=== PATIENT | female | born 1985 | race Caucasian/White ===

== ENCOUNTER 2016-12-24 22:22 | Emergency (ER) | payer OTHER ==
--- NOTE | 2016-12-24 23:32 | PD ---
HPI Travel History International Travel<30 Days: No Contact w/Intl Traveler<30Days: No Known Affected Area: No History of Present Illness HPI This patient is a 31-year-old 4 para 10-1 EDC is January 24, 2017 presently at 35 weeks and 4 days presently incarcerated and was brought in [place] the [place] [facility] due to question of leaking fluid Amnisure is negative and subsequent onset of contractions at 9:15 PM No bleeding the baby is active She was told that the baby was breech 2 weeks ago No regularity to the contractions No nausea no vomiting no fever no chills no diarrhea or constipation no urinary tract symptoms had a mucousy discharge a few days ago Patient with a history of a previous section History Past Medical History Narrative Medical No known drug allergies no major medical problems Obstetric History Obstetric History First baby born January 25 at 2013 female infant weight 6 lbs. 7 oz. section for abruption of the placenta Oanh PATRICK 2 Past Surgical History Narrative Surgical appendectomy Family History Narrative Family History History of stroke and heart disease Family History: Negative Social History Alcohol Use: No Tobacco Use: Yes (half a pack of cigarettes per day) Substance Abuse: Yes (opioid substance abuse presently on Subutex 2 mg per day) Allergies-Medications Comments No known drug allergies Review of Systems General / Constitutional: Fever, Weight Gain, Weight Loss, Chills, Other Eyes: No: Diploplia, Blurred Vision, Visual changes, Pain, Photophobia, Other HENT: No: Headaches, Vertigo, Dental Difficulties, Lightheadedness, Other Cardiovascular: No: Irregular Rhythm, Chest Pain or Discomfort, Palpitations, Tachycardia, Syncope, Varicosities, Edema, Cyanosis, Other Respiratory: No: Cough, Short of Breath, Wheezing, Other Gastrointestinal: Nausea (nausea during the ), Abdominal Pain ( irregular contractions) Genitourinary: No: Urgency, Frequency, Dysuria, Nocturia, Hematuria, Decreased Urinary Output, Oliguria, Hesitancy, Dribbling, Incontinence, Pelvic Pain, Dyspareunia, Discharge, Menorrhagia, Vaginal Bleeding, Other Musculoskeletal: Other (pain in her right rib cage area), No: Limited ROM, Weakness, Cramping, Edema, Pain Neurologic: No: Weakness, Dizziness, Syncope, Focal Abnormalities, Coordination Problem, Headache, Slurred Speech, Seizures, Other Psychiatric: No: Anxiety, Depression, Suicidal Ideations, Disorder of Thought, Mood Disorder, Substance Abuse, Homicidal Ideation, Other Physical Exam Narrative GENERAL: Well-nourished, well-developed patient. Patient is alert oriented 3 and cooperative in moderate distress secondary to discomfort reporting that most of the pain is in her ribs on the right side SKIN: Warm and dry. HEAD: Normocephalic and atraumatic. EYES: No scleral icterus. No injection or drainage. ENT: No nasal drainage noted. Mucous membranes pink. Airway patent. NECK: Supple, trachea midline. No JVD. CARDIOVASCULAR: Regular rate and rhythm without murmurs, gallops, or rubs. RESPIRATORY: Breath sounds equal bilaterally. No accessory muscle use. ABDOMEN/GI gravid consistent with stated gestational age of 35 weeks healed Pfannenstiel incision Gravid to [-] weeks size 35 Fundal Height: [-] GENITOURINARY: Speculum exam is done there is no fluid no blood no gross dilatation External Genitalia: intact and normal in appearance BUS glands: [-] Cervix: [-] Posterior soft thick Dilatation: [-] 0 Effacement: [-] 0 Station: [-] Ballotable Presentation: [-] Breech on ultrasound Membranes: [intact amnisure is negative FHT's: Category: [-] 1 Baseline: [-] 130 Reactive: [-] + Variability: [-] Moderate difn-lp-qorr variability Decels: [-] 0 EXTREMITIES: No cyanosis or edema. 2+ reflexes BACK: Nontender without obvious deformity. No CVA tenderness. NEUROLOGICAL: Awake and alert. Motor and sensory grossly within normal limits. Five out of 5 muscle strength in all muscle groups. Normal speech. Data Data Vital Signs Reviewed: Yes (blood pressures 129/84 pulse is 109 she is afebrile) Labs Bedside ultrasound is done Amniotic fluid index is 18.12 The BPD is 8.61 equaling 34 weeks and 5 days Posterior grade 3 placenta no evidence of abruption Positive breathing Positive flexion Positive tone Baby is very active Vertex is in the right upper quadrant 10 out of 10 biophysical profile [facility] [place] Medical Record Reviewed: No Interpretation(s) 31-year-old 4 para 1 at 35 weeks and 4 days Not in labor Incarcerated [place] No Clinical evidence of ruptured membranes Smoker History of drug abuse on Subutex 2 mg per day Breech presentation with the vertex in the right upper quadrant Previous 10 out of 10 biophysical profile Rule out UTI Narrative Course / MDM Pain and [place] Lebron most likely from the vertex being in the right upper quadrant as this is where the patient states that most of her pain is Hurts more when the baby moves Urinalysis is negative no clinical evidence of urinary tract infection Patient feeling better Category 1 tracing Patient encouraged to discussed with the [place] [facility] physician scheduling of a repeat section at 39 weeks Plan External monitoring IV and by mouth fluid hydration Urinalysis Reevaluation Diagnosis Diagnosis: Primary Impression: Suman Lebron' contraction Additional Impressions: Breech presentation Qualified Code: O32.1XX0 - Breech presentation, not applicable or unspecified fetus Previous section 35 weeks gestation of Disposition: 01 DISCHARGE HOME Condition: Stable Janis Moore MD Dec 24, 2016 23:32
[2016-12-24 23:59] LABS: BACTERIA, URINE RARE /hpf; BLOOD, URINE NEG (NEG); COMMENT (UR) CULT NOT INDICATED; CULTURE IF INDICATED CULT NOT INDICATED; GLUCOSE,URINE NEG (NEG); KETONE, URINE NEG (NEG); MUCUS URINE FEW /lpf (OCC); NITRITE,URINE NEG (NEG); PH, URINE 7.5 (5.0-8.5); SQUAMOUS EPITHELIAL CELL URINE 2 /hpf (0-5); TRANSITIONAL EPI CELLS, URINE <1 /hpf; URINE COLOR YELLOW (YELLW/STRAW)
== END 2016-12-25 00:20 | disposition home or self-care (01) ==
LOC: HOBED 22:22 → EEVIPCON 22:22 → HOBED 12-25 00:20
DX: O47.03 False labor before 37 completed weeks of gestation, third trimester (principal); O99.333 Smoking (tobacco) complicating pregnancy, third trimester; Z3A.35 35 weeks gestation of pregnancy
CPT/HCPCS: 59025; 76815; 81001; 84112

== ENCOUNTER 2017-01-10 13:45 | Emergency (ER) | payer OTHER ==
[2017-01-10] MEDS ORDERED: LACTATED RINGER'S 1000 ML INJ 1,000 ML IV SCH (14:38)
--- NOTE | 2017-01-10 15:02 | PD ---
HPI Chief Complaint swelling Date Seen: Jan 10, 2017 Travel History International Travel<30 Days: No Contact w/Intl Traveler<30Days: No Known Affected Area: No History of Present Illness HPI 31y/o , IUP at 38.0 records reviewed and care complicated by 1. h/o gestational HTN, on aldomet 500mg BID 2. incarcerated 3. h/o drug abuse, was on oxycodone, currently on subtex 4. h/o prior C/S 5. h/o SAB x2 s/p D&C Patient presents c/o elevated BP for 1 week which has been controlled with methyldopa 500mg BID and swelling of her hands and feet. She denies any VENEGAS, visual changes, or RUQ/epigastric pain. She reports some swelling of her feet and hands and reports pain in her ankles from the swelling. She denies any VB or LOF. She reports the baby is moving normally at this time with good FM. She has no other complaints. Para: 1 : 4 Miscarriage: 2 History Past Medical History Medical History: Denies Significant Hx Obstetric History Obstetric History C/S x1 SAB x2 (both required D&C) Denies DSTDs or Abnl PAP Past Surgical History Narrative Surgical C/S Family History Narrative Family History CAD CT Social History Narrative Social History Opioid abuse Reports she stopped smoking 2mo ago when she became incarcerated Currently incarcerated Alcohol Use: No Tobacco Use: Yes Substance Abuse: Yes Allergies-Medications (Allergen,Severity, Reaction): Coded Allergies: No Known Allergies (Unverified , 01/10/17) Narrative Medication PNV Review of Systems Except as stated in HPI: all other systems reviewed are Neg Musculoskeletal: Edema Physical Exam Narrative GENERAL: Well-nourished, well-developed patient. A&Ox3, NAD SKIN: Warm and dry. No rashes/lesions noted HEAD: Normocephalic and atraumatic. EYES: No scleral icterus. No injection or drainage. ENT: No nasal drainage noted. Mucous membranes pink. Airway patent. NECK: Supple, trachea midline. CARDIOVASCULAR: Regular rate and rhythm without murmurs, gallops, or rubs. RESPIRATORY: Breath sounds equal bilaterally. No accessory muscle use. BREASTS: ABDOMEN/GI: Abdomen soft, non-tender, bowel sounds present, no rebound, no guarding Gravid GENITOURINARY: External Genitalia: intact and normal in appearance BUS glands: nl Cervix:no cervical/vaginal masses, physiologic d/c, Dilatation: 1 Effacement:50 Station: -2 SVE unchanged over serial exam Membranes: intact Uterine Contractions: decreased with hydration, now irregular FHR Category: 1, reactive, 130s with moderate LTV, good accels, and no decels EXTREMITIES: No cyanosis or edema. BACK: Nontender without obvious deformity. Psych grossly noraml memory/affect MS grossly normal ROM, gait, muscle strength NEUROLOGICAL: Awake and alert. Motor and sensory grossly within normal limits. Five out of 5 muscle strength in all muscle groups. Normal speech.DTR 2+, 1+ edema bilaterally, no calf tenderness Data Data Orders Vital Signs (Adult) .ON ADMISSION (01/10/17 14:38) ^ Labor Status (01/10/17 14:38) Urinalysis - C+S If Indicated (01/10/17 14:38) ^ Non Stress Test (01/10/17 14:38) Cbc No Diff, Includes Plts (01/10/17 14:38) Comprehensive Metabolic Panel (01/10/17 14:38) Uric Acid (01/10/17 14:38) Lactated Ringer's 1000 Ml Inj (Lr 1000 M (01/10/17 14:38) Protein Creat Ratio, Random Ur (01/10/17 14:38) MDM Plan A/P: 31y/o 1. IUP at 38.0 2. Contractions at term: no evidence of active labor, ctx decreased after hydration and are irregular and SVE unchanged over serial exams. Strict labor precatuions 3. Prior C/S: patient reports she is to have repeat C/S by Dr. Hollis but has not yet seen Dr. Hollis. Advised to have appointment scheduled ( according to [facility], patient is to have appt with Dr. Hollis). Advised patietn that typically we perform repeat C/S at 39w, so if she is unable to see Dr. Hollis, she could have C/S scheduled with [facility]. 4. Breech per pt 5. Opioid use: continue protocol with suboxone 6. h/o tobacco 7. wellbeing: patient reporting normal FM, FKC daily. NST reactive and reassuring, appropriate for gestational age with no decels noted 8. Incarcerated 9. Gestational HTN: BP stable and well controlled on aldomet 500mg BID, no evidence of preeclampsia, normal labs and normal PC ratio, strict preeclamsia precautions. 10. F/U with primary Ob in 2-3d or sooner if needed records requested from [facility] and reviewed, summarized as above. Diagnosis Diagnosis: Primary Impression: 38 weeks gestation of Additional Impression: False labor after 37 weeks of gestation without delivery Disposition: 01 DISCHARGE HOME Condition: Good Patient Instructions: Abdominal Pain in (ED), Movement (ED), Preeclampsia (ED) Additional Instructions: D/C to [facility]iary. F/U with Dr. Doyle this week. labor precautions, preeclampsia precautions. fkc daily. Negrita Turner MD Jan 10, 2017 15:02
[2017-01-10 15:10] LABS: HEMATOCRIT 32.5 % (35.0-46.0); MEAN CELL VOLUME 89.5 FL (80.0-100.0); MEAN CORPUSCULAR HEMOGLOBIN 30.9 PG (27.0-34.0); MEAN CORPUSCULAR HGB CONC 34.5 % (32.0-36.0); PLATELET COUNT 295 TH/MM3 (150-450); RED BLOOD COUNT 3.63 MIL/MM3 (4.00-5.30); RED CELL DISTRIBUTION WIDTH 13.8 % (11.6-17.2); REVIEW FLAG FINAL; WHITE BLOOD COUNT 17.1 TH/MM3 (4.0-11.0)
[2017-01-10 15:18] LABS: BLOOD, URINE NEG (NEG); COMMENT (UR) CULT NOT INDICATED; CULTURE IF INDICATED CULT NOT INDICATED; GLUCOSE,URINE NEG (NEG); KETONE, URINE NEG (NEG); MUCUS URINE FEW /lpf (OCC); NITRITE,URINE NEG (NEG); SQUAMOUS EPITHELIAL CELL URINE 2 /hpf (0-5); URINE COLOR YELLOW (YELLW/STRAW)
--- NOTE | 2017-01-10 15:20 | PD.LABORPN ---
Subjective Subjective NST Report Indications: IUP at 38w, prior C/S, incarcerated, gestational HTN, opioid addiction Baseline: 130s Variability: moderate variability Other: good accels, no decels noted with review of FHR tracing Reactive FHR tracing Final dx: IUP at 38w, prior C/S, incarcerated, gestational HTN, opioid addiction , false labor, no evidence of preeclampsia F/U as clinically indicated Negrita Turner MD Jan 10, 2017 15:20 Cervix: [-] Dilatation: [-] Effacement: [-] Station: [-] Presentation: [-] Membranes: [intact or ruptured] Uterine Contractions: [-] FHT's: Category: [-] Baseline: [-] Reactive: [-] Variability: [-] Decels: [-] Negrita Turner MD Jan 10, 2017 15:20
[2017-01-10 15:28] LABS: ALT (GPT) 15 U/L (10-53); ANION GAP 8 MEQ/L (5-15); AST (GOT) 11 U/L (15-37); BICARBONATE 23.9 MEQ/L (21.0-32.0); BLOOD UREA NITROGEN 7 MG/DL (7-18); CHLORIDE 107 MEQ/L (98-107); GLOMERULAR FILTRATION RATE 151 ML/MIN (>89); POTASSIUM 3.9 MEQ/L (3.5-5.1); SODIUM (NA) 139 MEQ/L (136-145)
[2017-01-10 15:29] LABS: ALKALINE PHOSPHATASE 125 U/L (45-117); TOTAL BILIRUBIN ADULT 0.1 MG/DL (0.2-1.0)
--- NOTE | 2017-01-12 14:06 | MH ---
cc: JEFF SANTA DATE OF ADMISSION: 01/10/2017 DATE OF : 1985 REASON FOR ADMISSION Scheduled repeat . INDICATION Elevated blood pressures severe swelling and headache suggesting preeclampsia at term, for care and secondary diagnosis of opioid addiction currently on very low-dose. HISTORY OF PRESENT CONDITION: The patient Lainey Fernandez is a pleasant 31-year-old white female 4, para 0-1-2-1 with LMP approximately March 11, 2016 and EDC January 26, 2017 by actually quite good dates with ultrasound. She has been seen a couple times without and the signed physician at [place] having been incarcerated in the last month. MEDICAL CONDITIONS: Her medical conditions are term at 38-2/7 weeks elevated blood pressure today 130/90, but it has been as high as 158/100 at the longterm. Opioid dependence on a very low dose of Subutex 2 mg daily, hepatitis C and an antibody is currently negative so as she does not have hepatitis C previous section at 35 weeks with placental abruption. for scheduled section today at 5:00. HISTORY OF PRESENT CONDITION: Lainey came to the office today from the longterm at 38 2/7 weeks. She underwent an ultrasound which gave her biophysical profile of 05/18 with a baby in the 75th percentile, breech with the amniotic fluid at nine, placenta is grade 2 to 3 and baby had an AIYANA biophysical profile she has had no labor and no gestational diabetes but she has had elevated blood pressures throughout much of this and she has been on methyldopa 500 mg twice a day and hydralazine 25 mg twice a day with the longterm providers. She uses promethazine on a p.r.n. basis for nausea, a vitamin and she has been on Subutex 2 mg daily. As mentioned I met her today, she is incarcerated for by lesion of probation. She is very stressed that she lost her father this week from an myocardial infarction and she was very close to him. She reports good movement. No leaking, no bleeding. No regular contractions. Her blood type is O+. Her hemoglobin was 10.6. I do not have a Pap smear. She is immune to Arabic measles. She is not immune to chickenpox. She is hepatitis B negative, hepatitis C negative, HIV negative, Chlamydia and gonorrhea negative. We do not have 28-week labs on her. She has not used any IV drugs for very long time. She is not in drug court but in regular court at this time. She has smoked cigarettes. She is not drinking any alcohol. Her only prior surgery is an appendectomy and her section. She has no other chronic or systemic illnesses. She weighs 157. Her blood pressure today was 138/90. She has 2 to 3+ pitting and edema. I do not know how much weight she has scan which she says she feels like it has been 10 pounds in the last week. She is complaining of a severe headache and some nausea but no vomiting. She has no thyroid enlargement. Her lungs are clear to auscultation. Heart: Rate and rhythm are regular. Her fundus is term the is breech. Estimated weight is 7-1/2 pounds. Pelvis is clinically adequate. She has no CVA tenderness. She has no recent tracks or bruises on arms she has pitting edema normotensive with respective reflexes. IMPRESSION/PLAN: Term intrauterine with elevated blood pressures, breech position, prior section and opioid maintenance at the longterm. The overall picture here is one that suggests delivery to day is most appropriate. Risks, benefits, expectations, alternatives have been described to Lainey, She will sign consents upon coming to the hospital and she is scheduled currently for 5 o'clock and thank you very much. MD RANDY Watt/rosalinda /1:12 PM /1:23 PM
== END 2017-01-10 16:04 ==
LOC: HOBED 13:45
DX: O13.3 Gestational [pregnancy-induced] hypertension without significant proteinuria, third trimester (principal); R51 Headache; Z3A.38 38 weeks gestation of pregnancy; O32.8XX0 Maternal care for other malpresentation of fetus, not applicable or unspecified
CPT/HCPCS: 59025; 80053; 81001; 82570; 84156; 84550; 85027

== ENCOUNTER 2017-01-12 14:59 | Inpatient (IN) | payer MEDICAID, OTHER ==
[2017-01-12] VITALS (26 sets, daily range): BP systolic 122–164; BP diastolic 62–112; PULSE 93–118; RESP 8–22; TEMP 98.1–98.5; O2SAT 94–100
[2017-01-12] MEDS ORDERED: LABETALOL HCL 100 MG/20 ML VIAL ONE (15:37)
--- NOTE | 2017-01-12 15:43 | PD.PN.STU ---
Subjective Remarks 31 year old with previous LTCS presents at 38 2/7 for Repeat C /S due to [place] Breech with preeclampsia (patient was started on Aldomet and hydralazine two weeks ago). Patient states that she has been having [place] Lebron contractions for the past few weeks but denies vision changes, abdominal pain or headaches. She has been incarcerated with [facility] and has been receiving care through their system. She has been a past history of tobacco use and has had nicotine during the . Overall she claims to be healthy until the last few weeks of this . Dr. ALAS from [facility] sent patient to our facility this past weekend due to concern for health from the preeclampsia and keara breech position. Medical conditions: GERD: only in , treated with ranitidine Opioid dependance: maintained on subutex 2mg daily Nausea/Vomiting: in , treated with Phenergan Objective Vitals Patient is laying in bed in no apparent distress. She has officer at bedside. Patient appears to be doing well. movement is noted and FHR has adequate rate with good variability. Blood pressures on monitor have been elevated. A/P Assessment and Plan prepare patient for repeat LTCS due to keara breech. HIP with possible overlying pre eclampsia Epidural or spinal when ready Ulisses Barton Jan 12, 2017 15:43 Ekta Hollis MD Jan 12, 2017 16:54
[2017-01-12 16:07] LABS: AUTOMATED NEUTROPHIL # 13.7 TH/MM3 (1.8-7.7); BASOPHIL # 0.1 TH/MM3 (0-0.2); BASOPHIL % 0.6 % (0.0-2.0); EOSINOPHIL # 0.1 TH/MM3 (0-0.4); EOSINOPHIL % 0.6 % (0.0-4.0); HEMATOCRIT 33.8 % (35.0-46.0); HEMO FLAGS DIFF FINAL; LYMPH % 16.5 % (9.0-44.0); MEAN CELL VOLUME 89.4 FL (80.0-100.0); MEAN CORPUSCULAR HEMOGLOBIN 30.8 PG (27.0-34.0); MEAN CORPUSCULAR HGB CONC 34.5 % (32.0-36.0); NEUT % 74.3 % (16.0-70.0); PLATELET COUNT 318 TH/MM3 (150-450); RED BLOOD COUNT 3.78 MIL/MM3 (4.00-5.30); RED CELL DISTRIBUTION WIDTH 13.8 % (11.6-17.2); WHITE BLOOD COUNT 18.4 TH/MM3 (4.0-11.0)
[2017-01-12] MEDS ORDERED: CITRIC ACID-SODIUM CITRATE LIQ 30 ML UDC PO SCH (16:15)
[2017-01-12] MEDS ORDERED: LACTATED RINGER'S 1000 ML IV ONE (16:15)
[2017-01-12] MEDS ORDERED: ceFAZolin 2 GM PREMIX 50 ML IV SCH (16:15)
[2017-01-12] MEDS ORDERED: CALCIUM GLUCONATE 10% 1 GM/10 ML VIAL IV PUSH PRN (16:15)
[2017-01-12 16:25] LABS: ALT (GPT) 17 U/L (10-53); ANION GAP 11 MEQ/L (5-15); AST (GOT) 15 U/L (15-37); BICARBONATE 22.3 MEQ/L (21.0-32.0); BLOOD UREA NITROGEN 5 MG/DL (7-18); CHLORIDE 106 MEQ/L (98-107); GLOMERULAR FILTRATION RATE 204 ML/MIN (>89); POTASSIUM 3.8 MEQ/L (3.5-5.1); SODIUM (NA) 139 MEQ/L (136-145)
[2017-01-12 16:26] LABS: BLOOD, URINE NEG (NEG); COMMENT (UR) CULT NOT INDICATED; CULTURE IF INDICATED CULT NOT INDICATED; GLUCOSE,URINE NEG (NEG); KETONE, URINE NEG (NEG); NITRITE,URINE NEG (NEG); PH, URINE 7.5 (5.0-8.5); SQUAMOUS EPITHELIAL CELL URINE <1 /hpf (0-5); URINE COLOR YELLOW (YELLW/STRAW)
[2017-01-12 16:27] LABS: ALKALINE PHOSPHATASE 127 U/L (45-117); TOTAL BILIRUBIN ADULT 0.2 MG/DL (0.2-1.0)
[2017-01-12] MEDS ORDERED: OXYTOCIN 10 UNIT/ML AMP ONE (16:37)
[2017-01-12] MEDS: LACTATED RINGER'S 1000 ML IV SCH (16:40)
[2017-01-12 16:50] LABS: AMPHETAMINE, URINE NEG (NEG); BARBITURATES, URINE NEG (NEG); COCAINE, URINE NEG (NEG)
[2017-01-12] MEDS ORDERED: SODIUM CHLORIDE 0.9% FLUSH 10 ML FLUSH IV FLUSH PRN (17:00)
[2017-01-12] MEDS ORDERED: SIMETHICONE 80 MG CHEWABLE TAB PO PRN (17:00)
[2017-01-12] MEDS ORDERED: OXYTOCIN 30 UNITS-500ML PREMIX 500 ML IV ONE (17:00)
[2017-01-12] MEDS ORDERED: LABETALOL HCL 100 MG/20 ML VIAL IV PUSH PRN ×3 (17:00)
[2017-01-12] MEDS ORDERED: ONDANSETRON HCL 4 MG/2 ML VIAL IV PUSH PRN (17:00)
[2017-01-12] MEDS ORDERED: ACETAMINOPHEN 1000 MG/100 ML VIAL IV ONE ×2 (17:00→18:24)
[2017-01-12] MEDS ORDERED: oxyCODONE/ACETAMINOPHEN 5 MG/325 MG TAB PO PRN (17:00)
--- NOTE | 2017-01-12 17:56 | PD.OB.DELI ---
Procedure Note Section Procedure Pre Op Diagnosis term, breech, prior section, HIP Post Op Diagnosis: Post Op Diagnosis same, large uterine EDMAR window with difficulty of repair Performed by Ekta Hollis Procedure: Repeat Low Transverse Sec, Other (Bilateral fimbriectomy) Informed consent obtained: For anesthesia, For procedure, Other (for tubes after the fact in writing (discussed in detail intra operatively)) Confirmed correct: Patient, Procedure, Site, Time-out taken Anesthesia: Spinal, Other (duramorph) Monitoring during procedure: Blood pressure monitoring Urinary catheter: Inserted using sterile technique, To dependent drainage Sterile preparation: Duraprep, In usual fashion, With 2% chlorexidine ( Hibiclens) Position: Supine with wedge to right side Operative Features Skin Incision: Pfannenstiel Uterine Incision: Low transverse w/knife / blunt ext Membranes Ruptured: Artificially Presentation: Breech Delivery of infant: Assisted Infant: Male One Minute : 9 Five Minute : 9 Weight: 7.5 Status of infant: Viable Placenta delivered: Intact Medications: Antibiotics, Oxytocin Estimated blood loss: 500 Maternal Complications: Other (separation of EDMAR with serosa intact and difficulty reapproximating ) Maternal Condition: Stable Condition: Stable (dictated), Serious (45 second delay in cord clamping.) Ekta Hollis MD Jan 12, 2017 17:56
[2017-01-12] MEDS ORDERED: MORPHINE SULFATE PF 5 MG/10 ML VIAL ONE (18:02)
[2017-01-12] MEDS ORDERED: ONDANSETRON HCL 4 MG/2 ML VIAL ONE (18:02)
[2017-01-12] MEDS ORDERED: fentaNYL CITRATE 250 MCG/5 ML AMP ONE (18:03)
[2017-01-12] MEDS ORDERED: MIDAZOLAM HCL 2 MG/2 ML VIAL ONE (18:03)
[2017-01-12] MEDS ORDERED: NALOXONE HCL 0.4 MG/ML AMP IV PRN (18:15)
[2017-01-12] MEDS ORDERED: MORPHINE SULFATE 30 MG/30 ML PCA ONE (18:36)
[2017-01-12] MEDS ORDERED: SODIUM CHLORIDE 0.9% FLUSH 5 ML FLUSH ONE (18:41)
[2017-01-12] MEDS: MORPHINE SULFATE 30 MG/30 ML PCA IV SCH ×2 (18:48→21:19)
[2017-01-12] MEDS ORDERED: LACTATED RINGER'S 1,000 ML BAG IV ONE (19:04)
[2017-01-12] MEDS ORDERED: PROPOFOL 200 MG/20 ML AMP IV PUSH ONE (19:04)
[2017-01-12] MEDS ORDERED: MAGNESIUM SULFATE 40 GM PREMIX 1,000 ML ONE (19:06)
[2017-01-12] MEDS ORDERED: EPIDURAL-NALOXONE HCL 0.4 MG/ML AMP IV PRN (19:30)
[2017-01-12] MEDS ORDERED: EPIDURAL-DIPHENHYDRAMINE HCL 50 MG/ML VIAL IV PUSH PRN (19:30)
[2017-01-12] MEDS ORDERED: EPIDURAL-NO SYSTEMIC NARCOTICS PRN (19:30)
[2017-01-12] MEDS ORDERED: EPIDURAL-DIPHENHYDRAMINE HCL 50 MG CAP PO PRN (19:30)
[2017-01-12] MEDS ORDERED: HYDROmorphone HCL PF 1 MG/ML VIAL IV PRN (19:30)
[2017-01-12] MEDS ORDERED: EPIDURAL-DO NOT ADMINISTER ANTICOAGULANTS PRN (19:30)
[2017-01-12] MEDS ORDERED: SODIUM CHLORIDE 0.9% FLUSH 10 ML FLUSH IV FLUSH SCH (21:00)
[2017-01-12] MEDS ORDERED: LACTATED RINGER'S 1000 ML INJ 1,000 ML IV SCH (21:55)
[2017-01-12] MEDS ORDERED: PCA - TOTAL MG MORPHINE DELIVERED PER SHIFT SCH (22:00)
[2017-01-13] VITALS (52 sets, daily range): BP systolic 105–145; BP diastolic 59–97; PULSE 95–167; RESP 14–20; TEMP 98.5–98.6; O2SAT 96–100
[2017-01-13] MEDS ORDERED: OXYTOCIN 30 UNITS-500ML PREMIX 500 ML IV PRN (03:00)
[2017-01-13] MEDS: MORPHINE SULFATE 30 MG/30 ML PCA IV SCH (03:41)
[2017-01-13] MEDS: LACTATED RINGER'S 1000 ML IV SCH (05:35)
[2017-01-13 06:01] LABS: AUTOMATED NEUTROPHIL # 16.2 TH/MM3 (1.8-7.7); BASOPHIL % 0.1 % (0.0-2.0); EOSINOPHIL # 0.2 TH/MM3 (0-0.4); HEMO FLAGS DIFF FINAL; LYMPH % 10.9 % (9.0-44.0); LYMPHOCYTE # 2.2 TH/MM3 (1.0-4.8); MEAN CELL VOLUME 90.2 FL (80.0-100.0); MEAN CORPUSCULAR HEMOGLOBIN 30.7 PG (27.0-34.0); MEAN CORPUSCULAR HGB CONC 34.1 % (32.0-36.0); MONO % 7.2 % (0.0-8.0); NEUT % 80.8 % (16.0-70.0); PLATELET COUNT 273 TH/MM3 (150-450); RED BLOOD COUNT 3.54 MIL/MM3 (4.00-5.30); RED CELL DISTRIBUTION WIDTH 14.1 % (11.6-17.2)
[2017-01-13] MEDS ORDERED: CYCLOBENZAPRINE HCL 10 MG TAB PO ONE (08:45)
[2017-01-13] MEDS ORDERED: QUEtiapine FUMARATE 25 MG TAB PO PRN (08:45)
[2017-01-13] MEDS ORDERED: KETOROLAC TROMETHAMINE 60 MG/2 ML (IM) VIAL IM ONE (08:45)
--- NOTE | 2017-01-13 12:20 | HHI.OB ---
Subjective Post Operative Day: 1 Remarks POD#1, Stable, BPR improved, Magnesium sulfate is now off Objective Vitals/I&O Vital Signs Date Time Temp Pulse Resp B/P Pulse Ox O2 Delivery O2 Flow Rate FiO2 01/13/17 12:13 16 01/13/17 12:10 95 97 01/13/17 12:05 98 98 01/13/17 12:00 97 97 01/13/17 11:55 97 97 01/13/17 11:50 95 97 01/13/17 11:45 95 97 01/13/17 11:40 109 97 01/13/17 11:35 105 99 01/13/17 11:30 98 97 01/13/17 11:25 98 97 01/13/17 11:20 100 96 01/13/17 11:15 98 97 01/13/17 11:10 96 98 01/13/17 11:05 96 97 01/13/17 11:00 96 98 01/13/17 10:55 100 98 01/13/17 10:50 95 97 01/13/17 10:45 96 100 01/13/17 10:40 100 98 01/13/17 10:35 96 99 01/13/17 10:30 99 99 01/13/17 10:28 18 01/13/17 10:25 97 99 01/13/17 10:20 102 100 01/13/17 10:10 104 100 01/13/17 10:05 104 100 01/13/17 10:01 110 117/83 01/13/17 10:00 106 99 01/13/17 09:55 106 100 01/13/17 09:50 105 100 01/13/17 08:55 104 118/74 01/13/17 08:54 18 01/13/17 08:44 20 01/13/17 08:00 106 143/66 01/13/17 07:06 98.5 01/13/17 07:05 106 18 133/74 01/13/17 07:05 20 01/13/17 06:00 167 110/76 01/13/17 05:05 110 124/71 01/13/17 04:00 103 105/59 01/13/17 03:01 117 111/65 01/13/17 02:40 18 01/13/17 02:00 138 139/76 01/13/17 01:01 18 01/13/17 01:00 117 145/79 01/13/17 00:05 98.5 18 01/13/17 00:02 134 129/75 01/12/17 23:01 98.5 108 18 138/62 01/12/17 22:02 138/85 01/12/17 22:02 98 18 01/12/17 21:19 18 01/12/17 21:01 18 01/12/17 21:01 105 137/69 01/12/17 19:59 97 18 125/72 01/12/17 19:20 93 20 126/76 94 01/12/17 19:17 98.2 95 01/12/17 19:16 99 22 123/79 01/12/17 19:00 100 18 127/82 97 01/12/17 18:48 19 01/12/17 18:45 97 18 164/74 94 01/12/17 18:45 131/63 01/12/17 18:30 103 19 129/80 95 01/12/17 18:15 18 01/12/17 18:15 95 01/12/17 18:15 96 8 144/77 01/12/17 18:02 98.1 01/12/17 18:00 99 18 128/77 100 01/12/17 18:00 98.1 01/12/17 16:35 102 01/12/17 16:30 100 122/95 01/12/17 16:30 103 01/12/17 16:25 99 01/12/17 16:20 103 01/12/17 16:15 112 01/12/17 16:15 100 151/87 01/12/17 16:10 96 01/12/17 16:05 96 01/12/17 16:00 102 01/12/17 16:00 99 138/112 01/12/17 15:55 96 01/12/17 15:50 116 01/12/17 15:49 118 129/104 01/12/17 15:45 102 122/103 01/12/17 15:20 14 Result Diagram: 01/13/17 0441 01/12/17 1543 Objective Remarks GENERAL: Well-nourished, well-developed patient. CARDIOVASCULAR: Regular rate and rhythm without murmurs, gallops, or rubs. RESPIRATORY: Breath sounds equal bilaterally. No accessory muscle use. ABDOMEN/GI: Abdomen soft, non-tender, bowel sounds present. Incision: Clean, dry and intact. Fundus: Firm, non-tender at umbilicus. GENITOURINARY: Light to moderate bleeding. EXTREMITIES: No cyanosis or edema, non-tender, without signs of DVT. Medications and IVs Current Medications Medications (Trade) Dose Ordered Sig/Tomasz Route Start Time Stop Time Status Last Admin (Lr 1000 ml Inj) 1,000 ml @ 150 mls/hr Q6H40M IV 01/12/17 16:15 01/12/17 16:40 Calcium Gluconate 1 gm 1 gm UNSCH PRN IV PUSH 01/12/17 16:15 (Lr 1000 ml Inj) 1,000 ml @ 100 mls/hr Q10H IV 01/12/17 21:55 01/13/17 17:54 (NS Flush) 2 ml BID IV FLUSH 01/12/17 21:00 (NS Flush) 2 ml UNSCH PRN IV FLUSH 01/12/17 17:00 (Mylicon Chew) 80 mg QID PRN PO 01/12/17 17:00 (Motrin) 600 mg Q6H PRN PO 01/12/17 17:00 (Percocet 5-325 Mg) 1 tab Q4H PRN PO 01/12/17 17:00 (Percocet 5-325 Mg) 2 tab Q4H PRN PO 01/12/17 17:00 (Chiquita-Colace) 2 tab Q12H PRN PO 01/12/17 17:00 (Ambien) 5 mg HS PRN PO 01/12/17 17:00 (M-M-R Ii Inj) 0.5 ml ONCE ONCE SQ 01/13/17 16:00 01/13/17 16:01 (Boostrix Inj) 0.5 ml ONCE ONCE IM 01/13/17 16:00 01/13/17 16:01 (Zofran Inj) 4 mg Q6H PRN IV PUSH 01/12/17 17:00 Assessment/Plan Assessment and Plan POD#1, PIH, mag. off,transfer to [facility]. Dr. Hollis will manage pain Attending Attestation seen by Fuad Lima MD Jan 13, 2017 12:20
[2017-01-13] MEDS: DOCUSATE SODIUM 50 MG/SENNA 8.6 MG TAB PO PRN (13:50)
[2017-01-13] MEDS: IBUPROFEN 600 MG TAB PO PRN ×2 (13:50→20:25)
[2017-01-13] MEDS: oxyCODONE/ACETAMINOPHEN 5 MG/325 MG TAB PO PRN ×3 (13:51→23:21)
[2017-01-13] MEDS ORDERED: MEASLES, MUMPS, RUBELLA VACCINE 0.5 ML VIAL SQ ONE (16:00)
[2017-01-13] MEDS ORDERED: DIPHTH/TETANUS/ACEL PERTUSSIS (BOOSTER) 0.5 ML VIAL/PFS IM ONE (16:00)
[2017-01-13] MEDS: ZOLPIDEM TARTRATE 5 MG TAB PO PRN (23:23)
[2017-01-14 00:20] VITALS: BP 122/80; PULSE 102; RESP 18; TEMP 98.4
[2017-01-14] MEDS: oxyCODONE/ACETAMINOPHEN 5 MG/325 MG TAB PO PRN ×5 (03:44→20:30)
[2017-01-14] MEDS: IBUPROFEN 600 MG TAB PO PRN ×3 (03:44→16:11)
[2017-01-14] MEDS: DOCUSATE SODIUM 50 MG/SENNA 8.6 MG TAB PO PRN ×2 (03:45→20:42)
[2017-01-14 08:00] VITALS: BP 129/74; PULSE 101; RESP 18; TEMP 98.4
--- NOTE | 2017-01-14 08:37 | HHI.OB ---
Subjective Post Operative Day: 2 Remarks ambulating, +flatus, Objective Vitals/I&O Vital Signs Date Time Temp Pulse Resp B/P Pulse Ox O2 Delivery O2 Flow Rate FiO2 01/14/17 08:00 98.4 101 18 129/74 01/14/17 00:20 98.4 102 18 122/80 01/13/17 20:20 98.6 110 20 141/97 01/13/17 15:30 98.5 108 14 128/76 01/13/17 13:12 98.5 111 18 138/79 01/13/17 12:35 98.5 01/13/17 12:14 103 134/69 01/13/17 12:13 16 01/13/17 12:10 95 97 01/13/17 12:05 98 98 01/13/17 12:00 97 97 01/13/17 11:55 97 97 01/13/17 11:50 95 97 01/13/17 11:45 95 97 01/13/17 11:40 109 97 01/13/17 11:35 105 99 01/13/17 11:30 98 97 01/13/17 11:25 98 97 01/13/17 11:20 100 96 01/13/17 11:15 98 97 01/13/17 11:10 96 98 01/13/17 11:05 96 97 01/13/17 11:00 96 98 01/13/17 10:55 100 98 01/13/17 10:50 95 97 01/13/17 10:45 96 100 01/13/17 10:40 100 98 01/13/17 10:35 96 99 01/13/17 10:30 99 99 01/13/17 10:28 18 01/13/17 10:25 97 99 01/13/17 10:20 102 100 01/13/17 10:10 104 100 01/13/17 10:05 104 100 01/13/17 10:01 110 117/83 01/13/17 10:00 106 99 01/13/17 09:55 106 100 01/13/17 09:50 105 100 01/13/17 08:55 104 118/74 01/13/17 08:54 18 01/13/17 08:44 20 Result Diagram: 01/13/17 0441 01/12/17 1543 Objective Remarks GENERAL: Well-nourished, well-developed patient. CARDIOVASCULAR: Regular rate and rhythm without murmurs, gallops, or rubs. RESPIRATORY: Breath sounds equal bilaterally. No accessory muscle use. ABDOMEN/GI: Abdomen soft, non-tender, bowel sounds present. Incision: Clean, dry and intact. Fundus: Firm, non-tender at umbilicus. GENITOURINARY: Light to moderate bleeding. EXTREMITIES: No cyanosis or edema, non-tender, without signs of DVT. Medications and IVs Current Medications Medications (Trade) Dose Ordered Sig/Tomasz Route Start Time Stop Time Status Last Admin (Lr 1000 ml Inj) 1,000 ml @ 150 mls/hr Q6H40M IV 01/12/17 16:15 01/12/17 16:40 (Calcium Gluconate Inj) 1 gm UNSCH PRN IV PUSH 01/12/17 16:15 (NS Flush) 2 ml BID IV FLUSH 01/12/17 21:00 (NS Flush) 2 ml UNSCH PRN IV FLUSH 01/12/17 17:00 (Mylicon Chew) 80 mg QID PRN PO 01/12/17 17:00 (Motrin) 600 mg Q6H PRN PO 01/12/17 17:00 01/14/17 03:44 (Percocet 5-325 Mg) 1 tab Q4H PRN PO 01/12/17 17:00 (Percocet 5-325 Mg) 2 tab Q4H PRN PO 01/12/17 17:00 01/14/17 07:47 (Chiquita-Colace) 2 tab Q12H PRN PO 01/12/17 17:00 01/14/17 03:45 (Ambien) 5 mg HS PRN PO 01/12/17 17:00 01/13/17 23:23 (Zofran Inj) 4 mg Q6H PRN IV PUSH 01/12/17 17:00 Assessment/Plan Assessment and Plan POD#2, PIH, mag. off Dr. Hollis will manage pain Discharge Planning routine Attending Attestation pt seen by Josie Herrmann MD Jan 14, 2017 08:37
--- NOTE | 2017-01-14 16:53 | MP ---
cc: EKTA SANTA DATE OF SURGERY: 01/12/2017. PREOPERATIVE DIAGNOSIS: Term intrauterine , -induced hypertension or hypertension in , breech presentation and prior section. POSTOPERATIVE DIAGNOSIS: Term intrauterine , -induced hypertension or hypertension in , breech presentation and prior section, large lower uterine segment window. OPERATIVE PROCEDURE PERFORMED: Repeat low transverse segment section and bilateral fimbriectomy. ANESTHESIA: Spinal with Duramorph SURGEON Ekta Santa MD. BIOSTATISTICS DIRECTOR: Rosendo Barton, third year medical student FINDINGS: A living male was delivered from right sacrum anterior with clear fluid and no body cord. The placenta was delivered intact with a three-vessel cord. His Apgars were 8 at one and 9 at five. He weighed 7 pounds, 5 ounces. Placenta was sent and cord blood was sent. The lower uterine segment basically had a serosal window and in repairing the lower uterine segment significant additional suture was needed to approximate uterine muscle. This window was felt to be of concern, discussed with the patient at length. She had wanted to have a tubal ligation but had not met me until this day. We agreed that a tubal ligation was appropriate given her risk of suture rupture prior to labor. She therefore underwent a bilateral fimbriectomy. ESTIMATED BLOOD LOSS: Estimated blood loss was average. COUNTS: Sponge, instrument and needle counts were correct. DISPOSITION: She tolerated the procedure well and she went to the recovery room in stable condition. DESCRIPTION OF THE PROCEDURE IN DETAIL: The patient was taken the operating room after coming to the hospital for elevated blood pressures. She was taken to the back, administered a spinal with Duramorph and prepped and draped in the usual sterile fashion in the dorsal supine position. A time-out was performed with all in attending. She received 2 grams of Ancef. Sequential stockings were on and a Paige catheter had been placed with clear urine. After being prepped and draped and adequate analgesia confirmed, a Pfannenstiel incision was made through her previous incision actually removing the keloid and this was taken down to the fascia which was incised in elliptical fashion. This was taken off the rectus muscle. the parietal peritoneum was entered sharply and then a bladder flap was attempted to be created off the lower uterine segment. It was apparent that the peritoneum there was basically the only thing containing the lower uterine segment. This was incised and the was delivered with a classic Pinard maneuvers and no concerns. The cord was left pulsing for 45 seconds and clamped, cut and the was handed to the neonatology team in attending. The placenta was delivered manually intact with the three-vessel cord. The uterus was exteriorized, cleaned with a lap sponge, closed with chromic in a running interlocking fashion. The lower uterine segment tore and this was reapproximated with additional suture. A second horizontal imbricating layer was placed. Again the lower uterine segment tore. This was oversewn and hemostasis was obtained. Then the right tube was excised from the midpoint to the fimbria, tied off x3 and sent off to pathology. This was repeated on the left side without difficulty. The uterus was carefully replaced in the abdominal cavity. Lavage was performed. All areas of surgical intervention were noted to be hemostatic. The rectus muscle was approximated with a running Vicryl. The fascia was closed with running Vicryl. The subcutaneous layer was closed with 3-0 plain and the skin was closed with 4-0 Monocryl on a Otoniel needle. MD RANDY Watt/JCC /6:00 PM /4:38 PM
[2017-01-14 19:15] VITALS: BP 137/85; PULSE 88; RESP 18; TEMP 97.9
[2017-01-15] MEDS: ZOLPIDEM TARTRATE 5 MG TAB PO PRN (00:22)
[2017-01-15] MEDS: IBUPROFEN 600 MG TAB PO PRN ×2 (00:28→06:29)
[2017-01-15] MEDS: oxyCODONE/ACETAMINOPHEN 5 MG/325 MG TAB PO PRN ×2 (00:28→06:29)
[2017-01-15] MEDS ORDERED: OXYC1TAB63 PO (08:09)
--- NOTE | 2017-01-15 08:09 | HHI.DCPOC ---
Discharge Care Plan Diagnosis: (1) Pre-eclampsia (2) delivery delivered (3) Opiate addiction Your Health Problems Are: Incisions/drains delivery Report Symptoms to Your Doctor -Temperate above 100.5 degrees -Redness, of incision or excessive or foul smelling drainage -Unusual pain or calf pain -Increased vaginal bleeding -Painful or difficulty urinating -Feelings of extreme sadness or anxiety after 2 weeks Goals to Promote Your Health * To prevent worsening of your condition and complications * To maintain your health at the optimal level Directions to Meet Your Goals Take your medications as prescribed Follow your dietary instruction Follow activity as directed Ensure plenty of rest for recovery Drink fluids for hydration Keep your appointments as scheduled Take your immunizations and boosters as scheduled If your symptoms worsen call your PCP, if no PCP go to Urgent Care Center or Emergency Room Smoking is Dangerous to Your Health. Avoid second hand smoke Call the 24-hour crisis hotline for domestic abuse at Rita Branham MD Jan 15, 2017 08:09
[2017-01-15] MEDS ORDERED: IBUP-232 PO (08:10)
--- NOTE | 2017-01-15 08:12 | HHI.OB ---
Subjective Post Operative Day: 3 Remarks doing well w pain control. baby has to stay in nicu for elevated bili Objective Vitals/I&O Vital Signs Date Time Temp Pulse Resp B/P Pulse Ox O2 Delivery O2 Flow Rate FiO2 01/14/17 19:15 97.9 88 18 137/85 Result Diagram: 01/13/17 0441 01/12/17 1543 Objective Remarks GENERAL: Well-nourished, well-developed patient. CARDIOVASCULAR: Regular rate and rhythm without murmurs, gallops, or rubs. RESPIRATORY: Breath sounds equal bilaterally. No accessory muscle use. ABDOMEN/GI: Abdomen soft, non-tender, bowel sounds present. Incision: Clean, dry and intact. Fundus: Firm, non-tender at umbilicus. GENITOURINARY: Light to moderate bleeding. EXTREMITIES: No cyanosis or edema, non-tender, without signs of DVT. Medications and IVs Current Medications Medications (Trade) Dose Ordered Sig/Tomasz Route Start Time Stop Time Status Last Admin (Lr 1000 ml Inj) 1,000 ml @ 150 mls/hr Q6H40M IV 01/12/17 16:15 01/12/17 16:40 (Calcium Gluconate Inj) 1 gm UNSCH PRN IV PUSH 01/12/17 16:15 (NS Flush) 2 ml BID IV FLUSH 01/12/17 21:00 (NS Flush) 2 ml UNSCH PRN IV FLUSH 01/12/17 17:00 (Mylicon Chew) 80 mg QID PRN PO 01/12/17 17:00 01/14/17 20:42 (Motrin) 600 mg Q6H PRN PO 01/12/17 17:00 01/15/17 06:29 (Percocet 5-325 Mg) 1 tab Q4H PRN PO 01/12/17 17:00 (Percocet 5-325 Mg) 2 tab Q4H PRN PO 01/12/17 17:00 01/15/17 06:29 (Chiquita-Colace) 2 tab Q12H PRN PO 01/12/17 17:00 01/14/17 20:42 (Ambien) 5 mg HS PRN PO 01/12/17 17:00 01/15/17 00:22 (Zofran Inj) 4 mg Q6H PRN IV PUSH 01/12/17 17:00 Assessment/Plan Assessment and Plan POD 3 s/p cd and btl for breech and Pre-e BP normal-mild range, had pp mag opiate addiction- pt has subtex rx given to her by dr jacobson. She needs to f /u with her in 1 wk for further pain management . Discharge Planning routine today Rita Branham MD Jan 15, 2017 08:12
[2017-01-15 08:20] VITALS: BP 121/80; PULSE 98; RESP 18; TEMP 97.8
[2017-01-15] MEDS ORDERED: SENN1TAB PO (08:32)
[2017-01-16 08:28] LABS: BATH SALTS (MDPV) UR NEG (NEG); ECSTASY (MDMA) UR NEG (NEG); HEROIN (6-ACETYLMORPHINE) UR NEG (NEG); K2 SPICE UR NEG (NEG); OBMETHADONE UR NEG (NEG); OXYCODONE (PERCODAN) NEG (NEG); PHENCYCLIDINE URINE NEG (NEG)
== END 2017-01-15 10:20 | disposition home or self-care (01) | DRG 765 ==
LOC: H2EB 14:59 → H2EA 19:26 → H1EA 01-13 12:50
PROVIDERS: ADMIT Obstetrics & Gynecology; ATTEND Obstetrics & Gynecology
PROC: 10D00Z1 Extraction of Products of Conception, Low, Open Approach (ICD-10-PCS; principal; 2017-01-12)
PROC: 0UB70ZZ Excision of Bilateral Fallopian Tubes, Open Approach (ICD-10-PCS; 2017-01-12)
PROC: 0UQ90ZZ Repair Uterus, Open Approach (ICD-10-PCS; 2017-01-12)
DX: O32.1XX0 Maternal care for breech presentation, not applicable or unspecified (principal); O99.324 Drug use complicating childbirth; F11.20 Opioid dependence, uncomplicated; O13.4 Gestational [pregnancy-induced] hypertension without significant proteinuria, complicating childbirth; O34.211 Maternal care for low transverse scar from previous cesarean delivery; O71.81 Laceration of uterus, not elsewhere classified; O99.330 Smoking (tobacco) complicating pregnancy, unspecified trimester; O14.94 Unspecified pre-eclampsia, complicating childbirth; K21.9 Gastro-esophageal reflux disease without esophagitis; O99.62 Diseases of the digestive system complicating childbirth; F17.200 Nicotine dependence, unspecified, uncomplicated; Z37.0 Single live birth; Z3A.38 38 weeks gestation of pregnancy
CPT/HCPCS: 59025; 80053; 80307; 81001; 84550; 85025; 86850; 86900; 86901; 88302; 90715; G0481; J0131; J0690; J1885; J2250; J2270; J2274; J2405; J2590; J3010; J3475; J7120